=== PATIENT | female | born 1990 | race Caucasian/White ===

== ENCOUNTER 2019-11-26 05:39 | Inpatient (IN) | payer MEDICAID, OTHER ==
[2019-11-26 05:51] VITALS: PULSE 150
[2019-11-26] MEDS ORDERED: Sodium Chloride 0.9% 1,000 ML IV ONE ×2 (06:14→07:59)
[2019-11-26] MEDS ORDERED: Pantoprazole 40 MG Vial IVPUSH ONE (06:14)
[2019-11-26] MEDS ORDERED: Sodium Chloride 0.9% 1,000 ML ONE (06:16)
[2019-11-26] MEDS: Pantoprazole 80 MG in Sodium Chloride 0.9% 100 ML IV SCH ×2 (06:29→16:55)
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
--- NOTE | 2019-11-26 07:36 | CR ---
Abdomen: Upright view of the abdomen were obtained. Previous spine surgery is noted. Scattered gas within small bowel is seen. Small bowel gas is slightly prominent. No free air is seen. No soft tissue abnormality is seen. Impression: 1. Slightly prominent small bowel gas. Differential includes mild developing small bowel obstruction versus gastroenteritis. 2. No free air is seen. Diagnostic code #3 This report was dictated in [place] Standard Time
--- NOTE | 2019-11-26 07:48 | PCM.CONS ---
H&P History of Present Illness - General Date of Service: 11/26/19 Source of Information: Patient, Provider History Limitations: Reports: No Limitations - History of Present Illness Initial Comments - Free Text/Narative: 28 y lady awakened this am to vomiting blood. Reports nausea in last month. Periumbilical abdominal pain today. Pt had episode of syncope this am. Normally has BM once daily. No diarrhea or constipation. No melena. No prior occurrence of hematemesis. No history of ulcers. Per mother, pt has had increased NSAIDS lately, but pt denies. Epigastric Pain Score (Numeric/FACES): 10 - Related Data Allergies/Adverse Reactions: Allergies Allergy/AdvReac Type Severity Reaction Status Date / Time sumatriptan [From Imitrex] Allergy Severe Anaphylactic Verified 11/26/19 09:41 Shock sumatriptan succinate Allergy Severe Anaphylactic Verified 11/26/19 09:41 [From Imitrex] Shock Home Medications: Home Meds ALPRAZolam [Xanax] 0.5 mg PO BID PRN 11/26/19 [History] Cyclobenzaprine [Flexeril] 10 mg PO BID PRN 11/26/19 [History] DULoxetine HCl [Duloxetine HCl] 60 mg PO BID 11/26/19 [History] Gabapentin [Neurontin] 1,800 mg PO DAILY 11/26/19 [History] Hydrocodone/Acetaminophen [[place] 10-325 Tablet] 1 tab PO Q6H PRN 11/26/19 [ History] busPIRone [Buspar] 15 mg PO BID 11/26/19 [History] tiZANidine HCl [Zanaflex] 4 mg PO BID PRN 11/26/19 [History] Past Medical History - Past Health History Medical/Surgical History: Denies Medical/Surgical History 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: Musculoskeletal History: Reports: Back Pain, Chronic Psychiatric History: Reports: Anxiety Endocrine/Metabolic History: Reports: Obesity/BMI 30+ - Past Surgical History HEENT Surgical History: Reports: Oral Surgery Social & Family History - Family History Cardiac: Reports: CAD, Hypertension, [place] Neurological: Reports: CVA Endocrine/Metabolic: Reports: Diabetes, Type I - Tobacco Use Smoking Status *Q: Light Tobacco Smoker Years of Tobacco use: 2 Packs/Tins Daily: 1 Used Tobacco, but Quit: No - Caffeine Use Caffeine Use: Reports: None - Recreational Drug Use Recreational Drug Use: No - Living Situation & Occupation Living situation: Reports: , with Spouse, with Family Occupation: Employed H&P Review of Systems - Review of Systems: Review Of Systems: See Below General: Reports: Chills HEENT: Reports: No Symptoms Pulmonary: Reports: Cough Cardiovascular: Denies: Chest Pain Gastrointestinal: Reports: Abdominal Pain, Hematemesis, Nausea. Denies: Melena Genitourinary: Reports: No Symptoms Musculoskeletal: Reports: Leg Pain, Muscle Pain Psychiatric: Reports: No Symptoms Neurological: Reports: Syncope (this am) Exam - Exam Exam: See Below - Vital Signs Vital Signs: Last Vital Signs Temp 35.7 C 11/26/19 05:48 Pulse 150 H 11/26/19 05:48 Resp 18 11/26/19 05:48 BP 104/77 11/26/19 05:48 Pulse Ox 100 11/26/19 05:48 Weight: 92.533 kg - Exam Quality Assessment: No: Supplemental Oxygen General: Alert, Oriented HEENT: Conjunctiva Clear, EOMI Neck: Supple Lungs: Normal Respiratory Effort Cardiovascular: Regular Rhythm, Tachycardia GI/Abdominal Exam: Soft, No Distention, Tender (generalized abdominal tenderness without peritoneal signs). No: Guarding Extremities: Normal Inspection Peripheral Pulses: 2+: Dorsalis Pedis (L), Dorsalis Pedis (R) Skin: Warm, Dry, Intact Neurological: Cranial Nerves Intact Neuro Extensive - Mental Status: Normal Mood/Affect - Patient Data Lab Results Last 24 hrs: Laboratory Results - last 24 hr 11/26/19 11/26/19 11/26/19 Range/Units 06:13 06:13 06:13 WBC 16.33 H (3.98-10.04) K/mm3 RBC 4.72 (3.98-5.22) M/mm3 Hgb 13.2 (11.2-15.7) gm/dl Hct 40.7 (34.1-44.9) % MCV 86.2 (79.4-94.8) fl MCH 28.0 (25.6-32.2) pg MCHC 32.4 (32.2-35.5) g/dl RDW Std Deviation 39.6 (36.4-46.3) fL Plt Count 522 H (182-369) K/mm3 MPV 10.4 (9.4-12.3) fl Neutrophils % (Manual) 83 H (40-60) % Band Neutrophils % 0 (0-10) % Lymphocytes % (Manual) 14 L (20-40) % Atypical Lymphs % 0 % Monocytes % (Manual) 3 (2-10) % Eosinophils % (Manual) 0 L (0.7-5.8) % Basophils % (Manual) 0 L (0.1-1.2) Platelet Estimate Adequate RBC Morph Comment Normal PT 10.8 (9.7-12.0) SECONDS INR 0.99 APTT 27 (22-31) SECONDS Sodium 137 (136-145) mEq/L Potassium 4.3 (3.5-5.1) mEq/L Chloride 100 (98-107) mEq/L Carbon Dioxide 22 (21-32) mEq/L Anion Gap 19.3 H (5-15) BUN 38 H (7-18) mg/dL Creatinine 1.1 H (0.55-1.02) mg/dL Est Cr Clr Drug Dosing 72.72 mL/min Estimated GFR (MDRD) 58 (>60) mL/min BUN/Creatinine Ratio 34.5 H (14-18) Glucose 163 H (74-106) mg/dL Calcium 9.7 (8.5-10.1) mg/dL Magnesium 1.8 (1.8-2.4) mg/dl Total Bilirubin 0.7 (0.2-1.0) mg/dL AST 21 (15-37) U/L ALT 40 (14-59) U/L Alkaline Phosphatase 77 (46-116) U/L Total Protein 8.4 H (6.4-8.2) g/dl Albumin 3.8 (3.4-5.0) g/dl Globulin 4.6 gm/dL Albumin/Globulin Ratio 0.8 L (1-2) Lipase 65 L (73-393) U/L Blood Type Gel Antibody Screen Crossmatch 11/26/19 Range/Units 06:13 WBC (3.98-10.04) K/mm3 RBC (3.98-5.22) M/mm3 Hgb (11.2-15.7) gm/dl Hct (34.1-44.9) % MCV (79.4-94.8) fl MCH (25.6-32.2) pg MCHC (32.2-35.5) g/dl RDW Std Deviation (36.4-46.3) fL Plt Count (182-369) K/mm3 MPV (9.4-12.3) fl Neutrophils % (Manual) (40-60) % Band Neutrophils % (0-10) % Lymphocytes % (Manual) (20-40) % Atypical Lymphs % % Monocytes % (Manual) (2-10) % Eosinophils % (Manual) (0.7-5.8) % Basophils % (Manual) (0.1-1.2) Platelet Estimate RBC Morph Comment PT (9.7-12.0) SECONDS INR APTT (22-31) SECONDS Sodium (136-145) mEq/L Potassium (3.5-5.1) mEq/L Chloride (98-107) mEq/L Carbon Dioxide (21-32) mEq/L Anion Gap (5-15) BUN (7-18) mg/dL Creatinine (0.55-1.02) mg/dL Est Cr Clr Drug Dosing mL/min Estimated GFR (MDRD) (>60) mL/min BUN/Creatinine Ratio (14-18) Glucose (74-106) mg/dL Calcium (8.5-10.1) mg/dL Magnesium (1.8-2.4) mg/dl Total Bilirubin (0.2-1.0) mg/dL AST (15-37) U/L ALT (14-59) U/L Alkaline Phosphatase (46-116) U/L Total Protein (6.4-8.2) g/dl Albumin (3.4-5.0) g/dl Globulin gm/dL Albumin/Globulin Ratio (1-2) Lipase (73-393) U/L Blood Type O POSITIVE Gel Antibody Screen Negative Crossmatch See Detail Result Diagrams: 11/26/19 10:35 11/26/19 06:13 Sepsis Event Note - Evaluation Sepsis Screening Result: No Definite Risk - Focused Exam Vital Signs: Vital Signs Temp Pulse Resp BP Pulse Ox 11/26/19 05:48 35.7 C 150 H 18 104/77 100 Date Exam was Performed: 11/26/19 Time Exam was Performed: 13:07 Consult PN Assessment/Plan Procedures: Procedures ASPIRATE PLEURA W/O IMAGING (11/26/16) ASSAY OF CK (CPK) (11/26/16) ASSAY OF TROPONIN QUANT (11/26/16) BLOOD TRANSFUSION SERVICE (11/26/16) BLOOD TYPING SEROLOGIC ABO (11/26/16) BLOOD TYPING SEROLOGIC RH(D) (11/26/16) C-REACTIVE PROTEIN (11/26/16) CHEST X-RAY 1 VIEW FRONTAL (11/26/16) CHEST X-RAY 2VW FRONTAL&LATL (07/10/16) COMPATIBILITY TEST ANTIGLOB (11/26/16) COMPATIBILITY TEST SPIN (11/26/16) COMPLETE CBC W/AUTO DIFF WBC (11/26/16) CREATINE MB FRACTION (11/26/16) CRITICAL CARE ADDL 30 MIN (11/26/16) CRITICAL CARE FIRST HOUR (11/26/16) CT HEAD/BRAIN W/O DYE (04/14/14) DRUG TEST PRSMV DIR OPT OBS (11/26/16) EMERGENCY DEPT VISIT (11/26/16) EMERGENCY DEPT VISIT (08/07/16) EMERGENCY DEPT VISIT (12/18/15) EMERGENCY DEPT VISIT (12/10/15) HYDRATE IV INFUSION ADD-ON (11/26/16) INSERT EMERGENCY AIRWAY (11/26/16) INSERT TEMP BLADDER CATH (11/26/16) INSERTION OF CHEST TUBE (11/26/16) METABOLIC PANEL IONIZED CA (11/26/16) MRI NECK SPINE W/O DYE (12/29/15) PROTHROMBIN TIME (11/26/16) RBC ANTIBODY SCREEN (11/26/16) ROUTINE VENIPUNCTURE (11/26/16) THER/PROPH/DIAG INJ IV PUSH (11/26/16) THER/PROPH/DIAG INJ SC/IM (02/23/16) THER/PROPH/DIAG IV INF INIT (11/26/16) THROMBOPLASTIN TIME PARTIAL (11/26/16) TX/PRO/DX INJ NEW DRUG ADDON (11/26/16) TX/PRO/DX INJ SAME DRUG LEPIDOPTERIST (11/26/16) URINALYSIS AUTO W/SCOPE (11/26/16) VENT MGMT INPAT INIT DAY (11/26/16) X-RAY EXAM L-S SPINE 2/3 VWS (08/07/16) X-RAY EXAM NECK SPINE 6/>VWS (08/07/16) X-RAY EXAM THORAC SPINE 2VWS (08/07/16) (1) Upper GI bleed SNOMED Code(s): 15924552 Code(s): K92.2 - GASTROINTESTINAL HEMORRHAGE, UNSPECIFIED Current Visit: Yes Problem List Initiated/Reviewed/Updated: Yes Plan: 28 y/o lady with UGI bleed, question of NSAID induced gastropathy - IVF resuscitation with bolus as needed. May transfuse PRBC per primary - IV protonix - continue to monitor for hematemesis or melena - Hg check every 6 hours - NPO - pain management per primary Will follow Tammy Allred MD General Surgery
[2019-11-26] MEDS ORDERED: Ondansetron 4 MG/2 ML SDV IVPUSH ONE (07:59)
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
[2019-11-26] MEDS: Sodium Chloride 0.9% 1,000 ML IV SCH ×4 (10:58→22:16)
[2019-11-26] MEDS ORDERED: LORazepam 2 MG/ML SDV IVPUSH PRN (11:01)
[2019-11-26] MEDS ORDERED: Sodium Chloride 0.9% 500 ML IV ONE (11:15)
[2019-11-26] MEDS: Ondansetron 4 MG/2 ML SDV IV PRN ×2 (14:12→22:21)
[2019-11-26] MEDS: HYDROmorphone 0.5 MG/0.5 ML Syringe IVPUSH PRN ×2 (14:35→22:14)
[2019-11-27] MEDS: Sodium Chloride 0.9% 1,000 ML IV SCH (05:04)
[2019-11-27] MEDS: Pantoprazole 80 MG in Sodium Chloride 0.9% 100 ML IV SCH (05:04)
--- NOTE | 2019-11-27 09:10 | PCM.CONSN ---
- General Info Date of Service: 11/27/19 Subjective Update: Patient is doing well with only minimal pain in the left lower quadrant. Denies any nausea. Denies hematemesis or melena. Dizziness has resolved Functional Status: Reports: Pain Controlled, Ambulating, Urinating - Patient Data Vitals - Most Recent: Last Vital Signs Temp 36.6 C 11/27/19 07:43 Pulse 150 H 11/26/19 05:48 Resp 18 11/27/19 07:43 BP 128/91 H 11/27/19 07:43 Pulse Ox 99 11/27/19 07:43 Orthostatic Blood Pressure [ 88/67 Standing] Orthostatic Blood Pressure [ 106/83 Supine] Weight - Most Recent: 92.578 kg I&O - Last 24 Hours: Intake & Output 11/26/19 11/27/19 11/27/19 22:59 06:59 14:59 Intake Total 1203 1781 Output Total 400 Balance 803 1781 Lab Results Last 24 Hours: Laboratory Results - last 24 hr 11/26/19 11/26/19 11/26/19 Range/Units 10:35 10:35 16:25 Hgb 10.9 L D 9.8 L (11.2-15.7) gm/dl Hct 34.0 L 30.9 L (34.1-44.9) % HCG, Quant 1.0 mIU/mL 11/26/19 11/27/19 Range/Units 22:07 04:05 Hgb 8.8 L 8.1 L (11.2-15.7) gm/dl Hct 28.2 L 26.6 L (34.1-44.9) % HCG, Quant mIU/mL Med Orders - Current: Current Medications Hydromorphone HCl (Dilaudid) 0.5 mg IVPUSH Q2H PRN PRN Reason: Pain Last Admin: 11/26/19 22:14 Dose: 0.5 mg Pantoprazole Sodium 80 mg/ (Sodium Chloride) 100 mls @ 10 mls/hr IV Q10H [facility]LE[facility] Last Admin: 11/27/19 05:04 Dose: 8 mg/hr, 10 mls/hr Sodium Chloride (Normal Saline) 1,000 mls @ 150 mls/hr IV ASDIRECTED [facility] Last Admin: 11/27/19 05:04 Dose: 150 mls/hr Lorazepam (Ativan) 0.5 mg IVPUSH Q4H PRN PRN Reason: Anxiety Last Admin: 11/26/19 22:14 Dose: 0.5 mg Ondansetron HCl (Zofran) 4 mg IV Q4H PRN PRN Reason: Nausea/Vomiting Last Admin: 11/26/19 22:21 Dose: 4 mg Discontinued Medications Sodium Chloride (Normal Saline) 1,000 mls @ 999 mls/hr IV ONETIME ONE Stop: 11/26/19 07:14 Last Admin: 11/26/19 06:27 Dose: 999 mls/hr Sodium Chloride (Normal Saline) Confirm Administered Dose 1,000 mls @ as directed .ROUTE .STK-MED ONE Stop: 11/26/19 06:17 Last Admin: 11/26/19 06:35 Dose: Not Given Sodium Chloride (Normal Saline) 1,000 mls @ 999 mls/hr IV ONETIME ONE Stop: 11/26/19 08:59 Last Admin: 11/26/19 08:13 Dose: 999 mls/hr Sodium Chloride (Normal Saline) 1,000 mls @ 125 mls/hr IV ASDIRECTED [facility]LE[facility] Last Admin: 11/26/19 15:17 Dose: 125 mls/hr Sodium Chloride (Normal Saline) 500 mls @ 999 mls/hr IV .BOLUS ONE Stop: 11/26/19 11:45 Last Admin: 11/26/19 11:16 Dose: 999 mls/hr Ondansetron HCl (Zofran) 4 mg IVPUSH ONETIME ONE Stop: 11/26/19 08:00 Last Admin: 11/26/19 08:12 Dose: 4 mg Pantoprazole Sodium (Protonix Iv) 80 mg IVPUSH BOLUS ONE Stop: 11/26/19 06:15 Last Admin: 11/26/19 06:28 Dose: 80 mg - Exam Quality Assessment: No: Supplemental Oxygen General: Alert, Oriented HEENT: EOMI Lungs: Normal Respiratory Effort GI/Abdominal Exam: Soft, Tender (Mild tenderness in LLQ) Sepsis Event Note - Evaluation Sepsis Screening Result: No Definite Risk - Focused Exam Vital Signs: Vital Signs Temp Resp BP Pulse Ox 11/27/19 07:43 36.6 C 18 128/91 H 99 11/27/19 04:00 36.6 C 16 105/62 98 11/27/19 00:00 36.7 C 16 124/78 99 Date Exam was Performed: 11/27/19 Time Exam was Performed: 09:07 Consult PN Assessment/Plan Procedures: Procedures ASPIRATE PLEURA W/O IMAGING (11/26/16) ASSAY OF CK (CPK) (11/26/16) ASSAY OF TROPONIN QUANT (11/26/16) BLOOD TRANSFUSION SERVICE (11/26/16) BLOOD TYPING SEROLOGIC ABO (11/26/16) BLOOD TYPING SEROLOGIC RH(D) (11/26/16) C-REACTIVE PROTEIN (11/26/16) CHEST X-RAY 1 VIEW FRONTAL (11/26/16) CHEST X-RAY 2VW FRONTAL&LATL (07/10/16) COMPATIBILITY TEST ANTIGLOB (11/26/16) COMPATIBILITY TEST SPIN (11/26/16) COMPLETE CBC W/AUTO DIFF WBC (11/26/16) CREATINE MB FRACTION (11/26/16) CRITICAL CARE ADDL 30 MIN (11/26/16) CRITICAL CARE FIRST HOUR (11/26/16) CT HEAD/BRAIN W/O DYE (04/14/14) DRUG TEST PRSMV DIR OPT OBS (11/26/16) EMERGENCY DEPT VISIT (11/26/16) EMERGENCY DEPT VISIT (08/07/16) EMERGENCY DEPT VISIT (12/18/15) EMERGENCY DEPT VISIT (12/10/15) HYDRATE IV INFUSION ADD-ON (11/26/16) INSERT EMERGENCY AIRWAY (11/26/16) INSERT TEMP BLADDER CATH (11/26/16) INSERTION OF CHEST TUBE (11/26/16) METABOLIC PANEL IONIZED CA (11/26/16) MRI NECK SPINE W/O DYE (12/29/15) PROTHROMBIN TIME (11/26/16) RBC ANTIBODY SCREEN (11/26/16) ROUTINE VENIPUNCTURE (11/26/16) THER/PROPH/DIAG INJ IV PUSH (11/26/16) THER/PROPH/DIAG INJ SC/IM (02/23/16) THER/PROPH/DIAG IV INF INIT (11/26/16) THROMBOPLASTIN TIME PARTIAL (11/26/16) TX/PRO/DX INJ NEW DRUG ADDON (11/26/16) TX/PRO/DX INJ SAME DRUG POSTULANT (11/26/16) URINALYSIS AUTO W/SCOPE (11/26/16) VENT MGMT INPAT INIT DAY (11/26/16) X-RAY EXAM L-S SPINE 2/3 VWS (08/07/16) X-RAY EXAM NECK SPINE 6/>VWS (08/07/16) X-RAY EXAM THORAC SPINE 2VWS (08/07/16) (1) Upper GI bleed SNOMED Code(s): 95897419 Code(s): K92.2 - GASTROINTESTINAL HEMORRHAGE, UNSPECIFIED Current Visit: Yes Problem List Initiated/Reviewed/Updated: Yes Plan: 28 y/o lady with UGI bleed, question of NSAID induced gastropathy. Hemodynamics are improved and patient has no exam findings of active ongoing bleeding. Drop in hemoglobin is likely due to dilution and equilibration of hemoglobin. - IVF resuscitation with bolus as needed. May transfuse PRBC per primary - IV protonix - continue to monitor for hematemesis or melena - Hg check every 6 hours - NPO - pain management per primary Will follow. It does not appear by patient's clinical picture that she is in need of an urgent endoscopy. Tammy Allred MD General Surgery
[2019-11-27] MEDS: Ondansetron 4 MG/2 ML SDV IV PRN (10:43)
[2019-11-27] MEDS: HYDROmorphone 0.5 MG/0.5 ML Syringe IVPUSH PRN (10:43)
[2019-11-27] MEDS ORDERED: Nicotine 14 MG/24 Hr Patch TRDERM SCH (10:45)
[2019-11-27] MEDS ORDERED: Lactated Ringers 1,000 ML IV SCH (10:45)
[2019-11-27 12:46] VITALS: BP 132/97
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
--- NOTE | 2019-11-27 14:36 | PCM.DCSUM1 ---
Discharge Summary - Hospital Course HPI Initial Comments: 28-year-old female with a history of chronic back pain on long-term opioid analgesics presents to the emergency room after 6 episodes of bloody emesis. Patient states that around 1:00 this morning she vomited on the floor a large amount of blood, this occurred another several times and she had one significant bloody emesis in the emergency room at 4:00 this morning. Patient has been taking Aleve 2 to 4 tablets daily for the last 6 years. She does state that she has had some abdominal discomfort and epigastric discomfort over the last few weeks. She reportedly did have a syncopal episode this morning. She denies any melena, hematochezia, or diarrhea. She denies any previous episodes similar to this and no stomach ulcers. Diagnosis: Stroke: No - Discharge Data Discharge Date: 11/27/19 Discharge Disposition: Home, Self-Care 01 Condition: Good - Referral to Home Health Primary Care Physician: Romana Lares MAT TESTER - Discharge Diagnosis/Problem(s) (1) Upper GI bleed SNOMED Code(s): 21434496 ICD Code: K92.2 - GASTROINTESTINAL HEMORRHAGE, UNSPECIFIED Status: Acute Current Visit: Yes (2) Chronic tachycardia SNOMED Code(s): 6230496 ICD Code: R00.0 - TACHYCARDIA, UNSPECIFIED Status: Acute Current Visit: Yes (3) Chronic migraine SNOMED Code(s): 830175964 ICD Code: G43.709 - CHRONIC MIGRAINE W/O AURA, NOT INTRACTABLE, W/O STAT MIGR Status: Acute Current Visit: Yes (4) Anemia SNOMED Code(s): 964187777 ICD Code: D64.9 - ANEMIA, UNSPECIFIED Status: Acute Current Visit: Yes - Patient Summary/Data Labs Pending at D/C: Repeat Hb in 3-5 days Recommended Follow-up Testing/Procedures: EGD Hospital Course: Patient came in with complaint of upper GI bleed. She was admitted on IV pantoprazole and surgery was consulted who recommended monitoring Hb. Hemoglobin was between 8-9 during admission. She did not have any further episodes of hematemesis, she denies any hematochezia or melena. Did not have a BM during admission. We discussed importance of avoiding NSAIDs as much as possible and importance of quitting smoking. - Patient Instructions Diet: No Alcoholic Beverages - Discharge Plan *PRESCRIPTION DRUG MONITORING PROGRAM REVIEWED*: Not Applicable *COPY OF PRESCRIPTION DRUG MONITORING REPORT IN PATIENT IQRA: Not Applicable Prescriptions/Med Rec: Pantoprazole Sodium 40 mg PO BID #30 tablet. Home Medications: Home Meds ALPRAZolam [Xanax] 0.5 mg PO BID PRN 11/26/19 [History] Cyclobenzaprine [Flexeril] 10 mg PO BID PRN 11/26/19 [History] DULoxetine HCl [Duloxetine HCl] 60 mg PO BID 11/26/19 [History] EPINEPHrine [Epipen] 0.3 mg IM ASDIRECTED PRN 11/26/19 [History] Gabapentin [Neurontin] 600 mg PO TID 11/26/19 [History] Hydrocodone/Acetaminophen [[place] 10-325 Tablet] 1 tab PO Q6H PRN 11/26/19 [ History] busPIRone [Buspar] 15 mg PO BID 11/26/19 [History] cloNIDine HCL [Clonidine HCl] 0.2 mg PO BEDTIME 11/26/19 [History] tiZANidine HCl [Zanaflex] 4 mg PO BID 11/26/19 [History] Pantoprazole Sodium 40 mg PO BID #30 tablet. 11/27/19 [Rx] Patient Handouts: Gastrointestinal Bleeding, [id number], Steps to Quit Smoking Referrals: Romana Lares NP [Primary Care Provider] - - Discharge Summary/Plan Comment DC Time >30 min.: Yes - General Info Date of Service: 11/27/19 Subjective Update: Feeling ok Ambulating to and from restroom No BM yet Hungry, no abdominal pain or other complaints - Patient Data Vitals - Most Recent: Last Vital Signs Temp 97.8 F 11/27/19 12:00 Pulse 150 H 11/26/19 05:48 Resp 18 11/27/19 12:00 BP 132/97 H 11/27/19 12:00 Pulse Ox 100 11/27/19 12:00 Orthostatic Blood Pressure [ 88/67 Standing] Orthostatic Blood Pressure [ 106/83 Supine] Weight - Most Recent: 92.578 kg - Exam General: Reports: Alert, Oriented, Cooperative, No Acute Distress HEENT: Reports: Pupils Equal, Pupils Reactive, EOMI, Mucous Membr. Moist/[place] Neck: Reports: Supple, Trachea Midline, No JVD, No Thyromegaly, +2 Carotid Pulse wo Bruit Lungs: Reports: Clear to Auscultation, Normal Respiratory Effort. Denies: Rales , Rhonchi, Wheezing Cardiovascular: Reports: Regular Rate, Regular Rhythm. Denies: Murmurs, Gallops , Rubs GI/Abdominal Exam: Normal Bowel Sounds, Soft, Non-Tender. No: Distended, Guarding, Rigid Back Exam: Reports: Normal Inspection Extremities: Normal Inspection, Normal Range of Motion, Non-Tender, No Pedal Edema, Normal Capillary Refill Psy/Mental Status: Reports: Alert
[2019-11-27] MEDS ORDERED: Pantoprazole 40 MG Vial IV SCH (21:00)
== END 2019-11-27 15:44 | disposition home or self-care (01) | DRG 379 ==
LOC: JD.ED 05:39 → JD.ICU 08:40
PROVIDERS: ADMIT Family Medicine; ATTEND Family Medicine
DX: K92.2 Gastrointestinal hemorrhage, unspecified (principal); T40.2X5A Adverse effect of other opioids, initial encounter; N28.89 Other specified disorders of kidney and ureter; E66.9 Obesity, unspecified; F17.200 Nicotine dependence, unspecified, uncomplicated; F41.9 Anxiety disorder, unspecified; F32.9 Major depressive disorder, single episode, unspecified; D64.9 Anemia, unspecified; N18.9 Chronic kidney disease, unspecified; E86.1 Hypovolemia; G89.29 Other chronic pain; G43.709 Chronic migraine without aura, not intractable, without status migrainosus; R00.0 Tachycardia, unspecified; Z88.8 Allergy status to other drugs, medicaments and biological substances; Z79.899 Other long term (current) drug therapy; Z68.32 Body mass index [BMI] 32.0-32.9, adult
CPT/HCPCS: 36415; 74018; 80053; 83690; 83735; 85007; 85027; 85610; 85730; 86850; 86900; 86901; 86922; 93005; 96361; 96365; 96366; 96374; 96375; 99285; C9113 ×2; J2405; J7030 ×2; J7050; 84702; 85014; 85018; 93010; 99222; 99239; J1170; J2060; J7040; J7120

== ENCOUNTER 2020-06-18 13:36 | Emergency (ER) | payer MEDICAID ==
[2020-06-18 14:10] VITALS: BP 104/73; PULSE 75
[2020-06-18] MEDS ORDERED: Ketorolac 30 MG/ML SDV IVPUSH ONE (14:51)
[2020-06-18] MEDS ORDERED: Sodium Chloride 0.9% 10 ML Syringe FLUSH PRN (14:51)
[2020-06-18] MEDS ORDERED: HYDROmorphone 0.5 MG/0.5 ML Syringe IVPUSH ONE (14:51)
[2020-06-18] MEDS ORDERED: Ondansetron 4 MG/2 ML SDV IVPUSH ONE (14:51)
[2020-06-18] MEDS ORDERED: Sodium Chloride 0.9% 1,000 ML IV SCH (15:00)
--- NOTE | 2020-06-18 15:47 | EDM.PDOC ---
ED HPI GENERAL MEDICAL PROBLEM - General Chief Complaint: General Stated Complaint: BACK PAIN,LIGHT HEADED,DIZZY, Time Seen by Provider: 06/18/20 14:48 Source of Information: Reports: Patient History Limitations: Reports: No Limitations - History of Present Illness INITIAL COMMENTS - FREE TEXT/NARRATIVE: Patient is a 29-year-old female who presents to the emergency department with complaints of generalized body aches, cramping of her lower extremities, headache, and decreased appetite. She has a history of chronic back pain for which she takes Glady and Flexeril. States she took these medications this morning with little relief. She also has a history of hypokalemia and states the last time she had symptoms similar to this, she was found to have a very low potassium. She denies any fever, chills, nausea, or vomiting. Generalized Pain Score (Numeric/FACES): 10 - Related Data Allergies Allergy/AdvReac Type Severity Reaction Status Date / Time sumatriptan [From Imitrex] Allergy Severe Anaphylactic Verified 11/26/19 09:41 Shock sumatriptan succinate Allergy Severe Anaphylactic Verified 11/26/19 09:41 [From Imitrex] Shock Home Meds: Home Meds ALPRAZolam [Xanax] 0.5 mg PO BID PRN 11/26/19 [History] Cyclobenzaprine [Flexeril] 10 mg PO BID PRN 11/26/19 [History] DULoxetine HCl [Duloxetine HCl] 60 mg PO BID 11/26/19 [History] EPINEPHrine [Epipen] 0.3 mg IM ASDIRECTED PRN 11/26/19 [History] Gabapentin [Neurontin] 800 mg PO TID 11/26/19 [History] Hydrocodone/Acetaminophen [[place] 10-325 Tablet] 1 tab PO Q6H PRN 11/26/19 [History] busPIRone [Buspar] 15 mg PO BID 11/26/19 [History] cloNIDine HCL [Clonidine HCl] 0.2 mg PO BEDTIME 11/26/19 [History] tiZANidine HCl [Zanaflex] 4 mg PO BID 11/26/19 [History] Pantoprazole Sodium 40 mg PO BID #30 tablet. 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: Musculoskeletal History: Reports: Back Pain, Chronic Neurological History: Reports: Concussion, Head Trauma Psychiatric History: Reports: Anxiety Endocrine/Metabolic History: Reports: Obesity/BMI 30+ - Infectious Disease History Infectious Disease History: Reports: Chicken Pox - Past Surgical History HEENT Surgical History: Reports: Oral Surgery GI Surgical History: Reports: None Neurological Surgical History: Reports: Lumbar Spine Social & Family History - Family History Family Medical History: Noncontributory Cardiac: Reports: CAD, Hypertension, [place] Neurological: Reports: CVA Endocrine/Metabolic: Reports: Diabetes, Type I - Tobacco Use Smoking Status *Q: Never Smoker Second Hand Smoke Exposure: Yes - Caffeine Use Caffeine Use: Reports: Soda, Tea - Recreational Drug Use Recreational Drug Use: Yes Drug Use in Last 12 Months: No Recreational Drug Type: Reports: Marijuana/Hashish - Living Situation & Occupation Living situation: Reports: , with Spouse, with Family Occupation: Employed ED ROS GENERAL - Review of Systems Review Of Systems: See Below Constitutional: Reports: No Symptoms, Weakness. Denies: Fever, Chills HEENT: Reports: No Symptoms Respiratory: Reports: No Symptoms. Denies: Shortness of Breath, Cough Cardiovascular: Reports: No Symptoms. Denies: Chest Pain Endocrine: Reports: No Symptoms GI/Abdominal: Reports: Decreased Appetite. Denies: Abdominal Pain, Diarrhea, Nausea, Vomiting : Reports: No Symptoms. Denies: Dysuria, Flank Pain Musculoskeletal: Reports: Other (Generalized body aches and cramping) Skin: Reports: No Symptoms Neurological: Reports: Headache. Denies: Confusion, Dizziness Psychiatric: Reports: No Symptoms Hematologic/Lymphatic: Reports: No Symptoms Immunologic: Reports: No Symptoms ED EXAM, GENERAL - Physical Exam Exam: See Below Exam Limited By: No Limitations General Appearance: Alert, WD/WN, No Apparent Distress Respiratory/Chest: No Respiratory Distress, Lungs Clear, Normal Breath Sounds, No Accessory Muscle Use, Chest Non-Tender Cardiovascular: Normal Peripheral Pulses, Regular Rate, Rhythm, No Edema, No Gallop, No JVD, No Murmur, No Rub GI/Abdominal: Normal Bowel Sounds, Soft, Non-Tender, No Organomegaly, No Distention, No Abnormal Bruit, No Mass Neurological: Alert, Oriented, CN II-XII Intact, Normal Cognition, Normal Gait, Normal Reflexes, No Motor/Sensory Deficits Psychiatric: Normal Affect, Normal Mood Skin Exam: Warm, Dry, Intact, Normal Color, No Rash Course - Vital Signs Last Recorded V/S: Last Vital Signs Temp 96.9 F 06/18/20 14:06 Pulse 75 06/18/20 14:06 Resp 16 06/18/20 14:06 BP 104/73 06/18/20 14:06 Pulse Ox 99 06/18/20 14:06 - Orders/Labs/Meds Labs: Laboratory Tests 06/18/20 06/18/20 06/18/20 Range/Units 15:15 15:15 16:10 WBC 9.24 (3.98-10.04) K/mm3 RBC 4.65 (3.98-5.22) M/mm3 Hgb 10.7 L D (11.2-15.7) gm/dl Hct 35.4 (34.1-44.9) % MCV 76.1 L D (79.4-94.8) fl MCH 23.0 L (25.6-32.2) pg MCHC 30.2 L (32.2-35.5) g/dl RDW Std Deviation 43.2 (36.4-46.3) fL Plt Count 446 H D (182-369) K/mm3 MPV 10.2 (9.4-12.3) fl Neut % (Auto) 60.0 (34.0-71.1) % Lymph % (Auto) 26.4 (19.3-51.7) % [place] % (Auto) 9.5 (4.7-12.5) % Eos % (Auto) 3.7 (0.7-5.8) Baso % (Auto) 0.2 (0.1-1.2) % Neut # (Auto) 5.54 (1.56-6.13) K/mm3 Lymph # (Auto) 2.44 (1.18-3.74) K/mm3 [place] # (Auto) 0.88 H (0.24-0.36) K/mm3 Eos # (Auto) 0.34 (0.04-0.36) K/mm3 Baso # (Auto) 0.02 (0.01-0.08) K/mm3 Sodium 138 (136-145) mEq/L Potassium 4.2 (3.5-5.1) mEq/L Chloride 101 (98-107) mEq/L Carbon Dioxide 27 (21-32) mEq/L Anion Gap 14.2 (5-15) BUN 11 D (7-18) mg/dL Creatinine 0.9 (0.55-1.02) mg/dL Est Cr Clr Drug Dosing 88.07 mL/min Estimated GFR (MDRD) > 60 (>60) mL/min BUN/Creatinine Ratio 12.2 L (14-18) Glucose 97 (74-106) mg/dL Calcium 9.2 (8.5-10.1) mg/dL Total Bilirubin 0.2 (0.2-1.0) mg/dL AST 15 (15-37) U/L ALT 17 (14-59) U/L Alkaline Phosphatase 77 (46-116) U/L C-Reactive Protein 3.0 H* (<1.0) mg/dL Total Protein 8.2 (6.4-8.2) g/dl Albumin 3.6 (3.4-5.0) g/dl Globulin 4.6 gm/dL Albumin/Globulin Ratio 0.8 L (1-2) Urine Color Yellow (Yellow) Urine Appearance Clear (Clear) Urine pH 7.0 (5.0-8.0) Ur Specific [place] 1.015 (1.005-1.030) Urine Protein Negative (Negative) Urine Glucose (UA) Negative (Negative) Urine Ketones Negative (Negative) Urine Occult Blood Negative (Negative) Urine Nitrite Negative (Negative) Urine Bilirubin Negative (Negative) Urine Urobilinogen 0.2 (0.2-1.0) Ur Leukocyte Esterase 1+ H (Negative) Urine RBC 0-5 (0-5) /hpf Urine WBC 10-20 H (0-5) /hpf Ur Squamous Epith Cells 5-10 H (0-5) /hpf Urine Bacteria Few (FEW) /hpf Urine Mucus Not seen (FEW) /hpf COVID-19 PCR (NOT DETECT) 06/18/20 Range/Units 17:30 WBC (3.98-10.04) K/mm3 RBC (3.98-5.22) M/mm3 Hgb (11.2-15.7) gm/dl Hct (34.1-44.9) % MCV (79.4-94.8) fl MCH (25.6-32.2) pg MCHC (32.2-35.5) g/dl RDW Std Deviation (36.4-46.3) fL Plt Count (182-369) K/mm3 MPV (9.4-12.3) fl Neut % (Auto) (34.0-71.1) % Lymph % (Auto) (19.3-51.7) % [place] % (Auto) (4.7-12.5) % Eos % (Auto) (0.7-5.8) Baso % (Auto) (0.1-1.2) % Neut # (Auto) (1.56-6.13) K/mm3 Lymph # (Auto) (1.18-3.74) K/mm3 [place] # (Auto) (0.24-0.36) K/mm3 Eos # (Auto) (0.04-0.36) K/mm3 Baso # (Auto) (0.01-0.08) K/mm3 Sodium (136-145) mEq/L Potassium (3.5-5.1) mEq/L Chloride (98-107) mEq/L Carbon Dioxide (21-32) mEq/L Anion Gap (5-15) BUN (7-18) mg/dL Creatinine (0.55-1.02) mg/dL Est Cr Clr Drug Dosing mL/min Estimated GFR (MDRD) (>60) mL/min BUN/Creatinine Ratio (14-18) Glucose (74-106) mg/dL Calcium (8.5-10.1) mg/dL Total Bilirubin (0.2-1.0) mg/dL AST (15-37) U/L ALT (14-59) U/L Alkaline Phosphatase (46-116) U/L C-Reactive Protein (<1.0) mg/dL Total Protein (6.4-8.2) g/dl Albumin (3.4-5.0) g/dl Globulin gm/dL Albumin/Globulin Ratio (1-2) Urine Color (Yellow) Urine Appearance (Clear) Urine pH (5.0-8.0) Ur Specific [place] (1.005-1.030) Urine Protein (Negative) Urine Glucose (UA) (Negative) Urine Ketones (Negative) Urine Occult Blood (Negative) Urine Nitrite (Negative) Urine Bilirubin (Negative) Urine Urobilinogen (0.2-1.0) Ur Leukocyte Esterase (Negative) Urine RBC (0-5) /hpf Urine WBC (0-5) /hpf Ur Squamous Epith Cells (0-5) /hpf Urine Bacteria (FEW) /hpf Urine Mucus (FEW) /hpf COVID-19 PCR Not detected (NOT DETECT) Meds: Medications Discontinued Medications Generic Name Dose Route Start Last Admin Trade Name Freq PRN Reason Stop Dose Admin Hydromorphone HCl 0.5 mg 06/18/20 14:51 06/18/20 15:25 Dilaudid IVPUSH 06/18/20 14:52 0.5 mg ONETIME ONE Administration Sodium Chloride 1,000 mls @ 999 mls/hr 06/18/20 15:00 06/18/20 15:19 Normal Saline IV 150 mls/hr ASDIRECTED COLLEEN Administration Ketorolac Tromethamine 30 mg 06/18/20 14:51 06/18/20 15:22 Toradol IVPUSH 06/18/20 14:52 30 mg ONETIME ONE Administration Ondansetron HCl 4 mg 06/18/20 14:51 06/18/20 15:19 Zofran IVPUSH 06/18/20 14:52 4 mg ONETIME ONE Administration Sodium Chloride 10 ml 06/18/20 14:51 06/18/20 15:18 Saline Flush FLUSH 10 ml ASDIRECTED PRN Administration Keep Vein Open - Re-Assessments/Exams Free Text/Narrative Re-Assessment/Exam: 06/18/20 17:27 Hematology was significant for hemoglobin low at 10.7 and CRP minimally elevated at 3.0. Potassium is normal at 4.2. Urinalysis was significant for 1+ le ukocyte esterase, 10-20 WBCs, and 5-10 squamous epithelial cells. She has had no urinary symptoms. This is concerning for possible contamination, will culture her urine and treat as needed once the culture results are available. Discussed the results of the work-up with the patient. We will test her for coronavirus today given her symptoms of headache and body aches although she has not been febrile or had any respiratory complaints. Recommend that she contact her primary care provider tomorrow to schedule a follow-up. Return to the ER for worsening symptoms. Departure - Departure Time of Disposition: 17:27 Disposition: Home, Self-Care 01 Condition: Good Clinical Impression: Body aches Headache Qualifiers: Headache type: unspecified Headache chronicity pattern: acute headache Intractability: not intractable Qualified Code(s): R51 - Headache - Discharge Information *PRESCRIPTION DRUG MONITORING PROGRAM REVIEWED*: No *COPY OF PRESCRIPTION DRUG MONITORING REPORT IN PATIENT IQRA: No Instructions: General Headache Without Cause Referrals: Romana Lares NP [Primary Care Provider] - Forms: ED Department Discharge, ED Return to Work/School Form Additional Instructions: You were seen in the emergency department today for generalized body aches, cramping, fatigue, decreased appetite, and headaches. He work-up included blood work and urinalysis. Your hemoglobin was found to be slightly low on the blood work, however your potassium is well within the normal range. Urinalysis returned results suspicious for contamination, however we will cart culture the urine and contact you if antibiotic treatment is indicated. Recommend that you continue to use the medications provided to you by your primary care provider. Contact Romana Lares tomorrow to arrange for follow-up. You will be notified of your coronavirus results when they are available. Return to the ER as needed. Sepsis Event Note (ED) - Evaluation Sepsis Screening Result: No Definite Risk
== END 2020-06-18 17:55 | disposition home or self-care (01) ==
LOC: JD.ED 13:36
DX: R51 Headache (principal); F41.9 Anxiety disorder, unspecified; E66.9 Obesity, unspecified; Z68.28 Body mass index [BMI] 28.0-28.9, adult; Z88.8 Allergy status to other drugs, medicaments and biological substances; Z77.22 Contact with and (suspected) exposure to environmental tobacco smoke (acute) (chronic); Z20.828 Contact with and (suspected) exposure to other viral communicable diseases; Z79.899 Other long term (current) drug therapy
CPT/HCPCS: 36415; 80053; 81001; 85025; 86140; 87086; 87635; 96374; 96375; 99284; J1170; J1885; J2405; J7030; 99283; U0002

== ENCOUNTER 2020-07-24 18:31 | Emergency (ER) | payer MEDICAID ==
[2020-07-24 19:03] VITALS: BP 132/88; PULSE 99
== END 2020-07-24 19:30 | disposition left against medical advice (07) ==
LOC: JD.ED 18:31
DX: Z53.21 Procedure and treatment not carried out due to patient leaving prior to being seen by health care provider (principal)

== ENCOUNTER 2020-11-12 00:10 | Emergency (ER) | payer MEDICAID ==
[2020-11-12 00:24] VITALS: BP 140/96; PULSE 110
[2020-11-12] MEDS ORDERED: Bupivacaine 0.5% 10 ML SDV INJECT ONE (00:48)
[2020-11-12] MEDS ORDERED: Lidocaine 1% with EPINEPHrine 1:100,000 20 ML MDV INJECT ONE (00:48)
[2020-11-12] MEDS ORDERED: Penicillin V Potassium 500 MG Tab PO STA (00:48)
--- NOTE | 2020-11-12 00:52 | EDM.PDOC ---
ED HPI GENERAL MEDICAL PROBLEM - General Chief Complaint: ENT Problem Stated Complaint: JAW PAIN Time Seen by Provider: 11/12/20 00:20 Source of Information: Reports: Patient, Other (Boyfriend) History Limitations: Reports: No Limitations - History of Present Illness INITIAL COMMENTS - FREE TEXT/NARRATIVE: Ms. Arauz is a 29-year-old woman with a past medical history significant for chronic back pain, prescribed Medon 10/325, 1 tablet QID per her PCP since 2016, with her most recent prescription filled on 10/30/2020, who now presents the ED complaining of lower left wisdom tooth pain that she states began tonight. No dental injury. No recent fever. No recent oral drainage. The patient states that she had a lower right tooth filled on 11/02/2020, but nothing was done to tooth the lower left wisdom tooth. She denies prior problems with that tooth. The patient states that she took 600 mg of ibuprofen around 22:00. When asked if she took anything else, she acknowledged that she took 1 tablet of Medon 10/325 around 22:00, as well. In the ED, the patient is found to be mildly tachycardic at 110 bpm, otherwise, she is hemodynamically stable, afebrile, saturating 100% on room air. Other than her dental pain, the patient denies having a recent fever, chills, sore throat, ear pain, nasal or sinus congestion, cough, dyspnea, chest pain, palpitations, nausea, vomiting, constipation, diarrhea, abdominal pain, urinary symptoms, recent weight gain or weight loss, recent bloody bowel movements or black bowel movements, recent joint aches, headaches, or rashes. The patient's PCP is Romana Lares NP. She has not received an influenza vaccine this season, and declined an offer to receive one here in the ED. Right Jaw Pain Score (Numeric/FACES): 10 - Related Data Allergies Allergy/AdvReac Type Severity Reaction Status Date / Time bee venom protein (honey bee) Allergy Severe Anaphylactic Verified 11/12/20 00:24 Shock sumatriptan [From Imitrex] Allergy Severe Anaphylactic Verified 11/12/20 00:24 Shock sumatriptan succinate Allergy Severe Anaphylactic Verified 11/12/20 00:24 [From Imitrex] Shock Home Meds: Home Meds ALPRAZolam [Xanax] 0.5 mg PO BID PRN 11/26/19 [History] Cyclobenzaprine [Flexeril] 10 mg PO BID PRN 11/26/19 [History] EPINEPHrine [Epipen] 0.3 mg IM ASDIRECTED PRN 11/26/19 [History] Gabapentin [Neurontin] 800 mg PO TID 11/26/19 [History] Hydrocodone/Acetaminophen [Medon 10-325 Tablet] 1 tab PO Q6H PRN 11/26/19 [History] cloNIDine HCL [Clonidine HCl] 0.2 mg PO BEDTIME 11/26/19 [History] tiZANidine HCl [Zanaflex] 4 mg PO BID 11/26/19 [History] Penicillin V Potassium 1 tab PO Q6HR #40 tab 11/12/20 [Rx] Past Medical History HEENT History: Reports: Impaired Vision Respiratory History: Reports: Pneumothorax (bilateral traumatic, 11/26/2016) Musculoskeletal History: Reports: Back Pain, Chronic, Fracture (L-spine) Neurological History: Reports: Concussion, Head Trauma Psychiatric History: Reports: Anxiety Endocrine/Metabolic History: Reports: Obesity/BMI 30+ - Infectious Disease History Infectious Disease History: Reports: Chicken Pox - Past Surgical History HEENT Surgical History: Reports: Oral Surgery (dental extractions) Neurological Surgical History: Reports: Lumbar Spine (fusion) Social & Family History - Tobacco Use Tobacco Use Status *Q: Former Tobacco User Tobacco Use Within Last Twelve Months: Vaping (Nicotine + CBD) Years of Tobacco use: 12 Packs/Tins Daily: 0.5 Month/Year Tobacco Last Used: Quit February 2020 - Caffeine Use Caffeine Use: Reports: Coffee - Alcohol Use Alcohol Use History: Yes Alcohol Use Frequency: Socially - Recreational Drug Use Recreational Drug Use: No - Living Situation & Occupation Living situation: Reports: , with Family Occupation: Unemployed ED ROS ENT - Review of Systems Review Of Systems: Comprehensive ROS is negative, except as noted in HPI. ED EXAM, ENT - Physical Exam Exam: See Below Exam Limited By: No Limitations General Appearance: Alert, WD/WN, No Apparent Distress Eye Exam: Bilateral Eye: EOMI, Normal Inspection Ears: Normal External Exam, Normal Canal, Hearing Grossly Normal, Normal TMs Nose: Normal Inspection, Normal Mucousa, No Blood Mouth/Throat: Normal Lips, Normal Oropharynx, Other (Teeth #1, 2 absent. Tooth #3 with amalgam filling and anterior caries. Tooth #4 absent. Tooth #5 with amalgam filling. Tooth #10 carious. Tooth #12 carious. Tooth #15, 16 absent. Tooth #17 (the tooth of concern) with caries on the occlusal surface, but no gingival swelling or pointing. Teeth #18, 19 absent. Tooth #20 with severe decay. Tooth #21, 22 absent. Tooth #29 with severe decay. Tooth #30 absent. Tooth #31 with decay. Tooth #32 with amalgam filling.) Head: Atraumatic, Normocephalic Neck: Normal Inspection, Supple, Non-Tender, Full Range of Motion. No: Lymphadenopathy (L), Lymphadenopathy (R) ED ENT PROCEDURES - Additional/Other Procedure(s) Other (Free Text) Procedure(s): Left inferior alveolar nerve block I prepared a 50-50 admixture of bupivacaine 0.5% without epinephrine and lidocaine 1% with epinephrine. After positioning the patient, I stood on her right side and palpated her retromolar fossa with my thumb. I retracted her left cheek with my left hand, visualizing her pterygomandibular triangle. I positioned the syringe fitted with a 27 gauge needle over the patient's right lower premolars, parallel to the occlusal surfaces of the patient's teeth and inserted the needle about 1 cm above tooth #16, advancing until bone was felt. I then injected about 2 cc of anesthetic, plus a small additional amount as I withdrew the needle. The patient tolerated the procedure well. Course - Vital Signs Last Recorded V/S: Last Vital Signs Temp 36.5 C 11/12/20 00:18 Pulse 110 H 11/12/20 00:18 Resp 18 11/12/20 00:18 BP 140/96 H 11/12/20 00:18 Pulse Ox 100 11/12/20 00:18 - Orders/Labs/Meds Meds: Medications Discontinued Medications Generic Name Dose Route Start Last Admin Trade Name Gabo PRN Reason Stop Dose Admin Bupivacaine HCl 10 ml 11/12/20 00:48 11/12/20 00:58 Sensorcaine-Mpf 0.5% INJECT 11/12/20 00:49 10 ml ONETIME ONE Administration Lidocaine/Epinephrine 20 ml 11/12/20 00:48 11/12/20 00:58 Xylocaine 1% With Epinephrine 1:100,000 INJECT 11/12/20 00:49 20 ml ONETIME ONE Administration Penicillin V Potassium 500 mg 11/12/20 00:48 11/12/20 00:58 Veetids PO 11/12/20 00:49 500 mg ONETIME STA Administration - Re-Assessments/Exams Free Text/Narrative Re-Assessment/Exam: 11/12/20 00:49 As above, the patient states that she developed a lower left wisdom tooth pain some time tonight, however, on examination, while she has a lower left third molar (wisdom tooth, Tooth #17), teeth #18 and 19 are absent, therefore there is no impaction or pressure on tooth #17, and while I see that she has caries on the occlusal surface, I see no gingival swelling to suggest a dental abscess. Additionally, she has widespread dental decay, but is not complaining of pain to those teeth. Her presentation is concerning for drug-seeking behavior, which is buttressed by prior documented drug-seeking behavior and the fact that she is prescribed 120 tablets of Medon 10/325 every month, with her most recent prescription being filled just 8 days ago, yet she did not mention this to the triage nurse. For today's purposes, I offered to perform an inferior alveolar nerve block, which the patient accepted. I will also start her on oral penicillin. 11/12/20 01:01 I performed a left inferior alveolar nerve block. Please see the procedure note. The patient tolerated the procedure well. I will discharge the patient home with a 10-day prescription for penicillin 500 mg po Q6 hrs along with instructions for her to take [id number] ibuprofen 600 mg up to every 8 hours with food, along with her previously prescribed Medon. She is to follow-up with a dentist within the next 10 days. Departure - Departure Time of Disposition: 01:07 Disposition: Home, Self-Care 01 Condition: Good Clinical Impression: Dentalgia - Discharge Information *PRESCRIPTION DRUG MONITORING PROGRAM REVIEWED*: Not Applicable *COPY OF PRESCRIPTION DRUG MONITORING REPORT IN PATIENT IQRA: Not Applicable Prescriptions: Penicillin V Potassium 1 tab PO Q6HR #40 tab Referrals: Romana Lares NP [Primary Care Provider] - Forms: ED Department Discharge Additional Instructions: You were seen in the emergency room for lower left dental pain. While you have dental cavities, no obvious dental infection was found, however, you have been started on the antibiotic penicillin just in case. A lower left dental block was performed in the ER. A prescription for penicillin has been sent to the [facility] pharmacy, located just south and across the [address] from [facility]. Take 1 tablet of penicillin every 6 hours, as prescribed. Finish the entire prescription unless told otherwise by dentist. We recommend that you take [id number] ibuprofen, 3 tablets (600 mg) up to every 8 hours, with food, as needed for discomfort. You may also take your previously prescribed Medon as needed for pain not relieved by ibuprofen. As discussed, it is very important that you follow-up with a dentist within the next 10 days. If any other problems, please do not hesitate to return to the ER. Sepsis Event Note (ED) - Evaluation Sepsis Screening Result: No Definite Risk - Focused Exam Vital Signs: Vital Signs Temp Pulse Resp BP Pulse Ox 11/12/20 00:18 36.5 C 110 H 18 140/96 H 100
== END 2020-11-12 01:19 | disposition home or self-care (01) ==
LOC: JD.ED 00:10
DX: K02.9 Dental caries, unspecified (principal); E66.9 Obesity, unspecified; Z68.32 Body mass index [BMI] 32.0-32.9, adult; Z91.030 Bee allergy status; Z88.8 Allergy status to other drugs, medicaments and biological substances; Z79.899 Other long term (current) drug therapy; Z87.891 Personal history of nicotine dependence
CPT/HCPCS: 64400; 99282; A9270; J3490; 99283

== ENCOUNTER 2020-11-24 18:49 | Emergency (ER) | payer MEDICAID ==
[2020-11-24 19:04] VITALS: BP 153/95; PULSE 111
[2020-11-24] MEDS ORDERED: Ketorolac 30 MG/ML SDV IVPUSH ONE (19:19)
[2020-11-24] MEDS ORDERED: Sodium Chloride 0.9% 1,000 ML IV STA (19:19)
[2020-11-24] MEDS ORDERED: HYDROmorphone 0.5 MG/0.5 ML Syringe IVPUSH ONE (19:19)
--- NOTE | 2020-11-24 19:59 | CT ---
Head CT Technique: Multiple axial sections through the brain were obtained. Intravenous contrast was not utilized. Comparison: Prior head CT study of 04/14/14. Findings: Ventricles along with basal cisterns and sulci over the convexities are within normal limits for the patient's age. No abnormal parenchymal densities are seen. No evidence of intracranial hemorrhage. No midline shift or mass-effect is appreciated. Visualized mastoid sinuses are clear. Visualized paranasal sinuses are also clear. No acute calvarial finding is appreciated. Impression: 1. Nothing acute is appreciated on noncontrast head CT study. Diagnostic code #1
--- NOTE | 2020-11-24 20:22 | EDM.PDOC ---
ED HPI GENERAL MEDICAL PROBLEM - General Chief Complaint: ENT Problem Stated Complaint: TOOTH PAIN Time Seen by Provider: 11/24/20 18:56 Source of Information: Reports: Patient, RN Notes Reviewed History Limitations: Reports: No Limitations - History of Present Illness INITIAL COMMENTS - FREE TEXT/NARRATIVE: Patient is a 29-year-old female presenting to the emergency department via [facility] with complaints of left sided tooth pain as well as a 6 syncopal event at home. She was seen in this emergency department 11 days ago with complaints of left jaw pain. She at that time was found to have dental caries on the left side and placed on oral antibiotics. She has finished these. She has since developed pain to teeth on her right lower and right upper. She has seen her dentist for this and they sealed a fractured tooth in the right lower which she states is still significantly painful. She states she is scheduled to have teeth pulled on December 09, but is also scheduled have fillings done tomorrow. Patient takes 1 [place] twice daily routinely for back pain with her last dose being around 11:00 this morning. She trujillo\d also taken ibuprofen approximately 3 hours prior to coming to the ER without relief. At home this evening, she was experiencing significant dental pain. States her last thing she remembers is her teeth hurting and then her daughter fighting with her father. She then woke up on the floor next to her bed with EMS in the room. He denies any chest pain or headache. He denies any illicit drug use. States that she does occasionally drink alcohol socially but that has been 4 months since she has had anything to drink. She denies any fever, chills, nausea, or vomiting. Right Jaw Pain Score (Numeric/FACES): 10 - Related Data Allergies Allergy/AdvReac Type Severity Reaction Status Date / Time bee venom protein (honey bee) Allergy Severe Anaphylactic Verified 11/24/20 18:56 Shock sumatriptan [From Imitrex] Allergy Severe Anaphylactic Verified 11/24/20 18:56 Shock sumatriptan succinate Allergy Severe Anaphylactic Verified 11/24/20 18:56 [From Imitrex] Shock Home Meds: Home Meds ALPRAZolam [Xanax] 0.5 mg PO BID PRN 11/26/19 [History] Cyclobenzaprine [Flexeril] 10 mg PO BID PRN 11/26/19 [History] EPINEPHrine [Epipen] 0.3 mg IM ASDIRECTED PRN 11/26/19 [History] Gabapentin [Neurontin] 800 mg PO TID 11/26/19 [History] Hydrocodone/Acetaminophen [[place] 10-325 Tablet] 1 tab PO Q6H PRN 11/26/19 [History] cloNIDine HCL [Clonidine HCl] 0.2 mg PO BEDTIME 11/26/19 [History] tiZANidine HCl [Zanaflex] 4 mg PO BID 11/26/19 [History] Penicillin V Potassium 1 tab PO Q6HR #40 tab 11/12/20 [Rx] Past Medical History - Past Health History Medical/Surgical History: Denies Medical/Surgical History HEENT History: Reports: Impaired Vision Cardiovascular History: Reports: None Respiratory History: Reports: Pneumothorax Gastrointestinal History: Reports: GI Bleed Genitourinary History: Reports: None 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: Musculoskeletal History: Reports: Back Pain, Chronic, Fracture Neurological History: Reports: Concussion, Head Trauma Psychiatric History: Reports: Anxiety Endocrine/Metabolic History: Reports: Obesity/BMI 30+ Hematologic History: Reports: None Immunologic History: Reports: None Oncologic (Cancer) History: Reports: None Dermatologic History: Reports: None - Infectious Disease History Infectious Disease History: Reports: Chicken Pox - Past Surgical History Head Surgeries/Procedures: Reports: None HEENT Surgical History: Reports: Oral Surgery Other HEENT Surgeries/Procedures: [place] teeth extraction GI Surgical History: Reports: None Endocrine Surgical History: Reports: None Neurological Surgical History: Reports: Lumbar Spine Musculoskeletal Surgical History: Reports: Other (See Below) Other Musculoskeletal Surgeries/Procedures:: Back surgery - fusion Social & Family History - Family History Family Medical History: No Pertinent Family History Cardiac: Reports: CAD, Hypertension, [place] Neurological: Reports: CVA Endocrine/Metabolic: Reports: Diabetes, Type I - Tobacco Use Tobacco Use Status *Q: Never Tobacco User - Caffeine Use Caffeine Use: Reports: Soda - Recreational Drug Use Recreational Drug Use: No - Living Situation & Occupation Living situation: Reports: , with Family Occupation: Unemployed ED ROS ENT - Review of Systems Review Of Systems: See Below Constitutional: Reports: No Symptoms. Denies: Fever, Chills HEENT: Reports: Dental Pain. Denies: Vision Change Respiratory: Reports: No Symptoms Cardiovascular: Reports: No Symptoms Endocrine: Reports: No Symptoms GI/Abdominal: Reports: No Symptoms : Reports: No Symptoms Musculoskeletal: Reports: No Symptoms Skin: Reports: No Symptoms Neurological: Reports: Syncope. Denies: Confusion, Dizziness, Headache Psychiatric: Reports: No Symptoms Hematologic/Lymphatic: Reports: No Symptoms Immunologic: Reports: No Symptoms ED EXAM, ENT - Physical Exam Exam: See Below General Appearance: Alert, Anxious, Mild Distress Mouth/Throat: Normal Inspection, Dental Pain (Pain, fractures, and obvious dental caries to tooth 3, 30, and 31) Respiratory/Chest: No Respiratory Distress, Lungs Clear, Normal Breath Sounds, No Accessory Muscle Use, Chest Non-Tender Cardiovascular: Normal Peripheral Pulses, Regular Rate, Rhythm, No Edema, No Gallop, No JVD, No Murmur, No Rub Neurological: Alert, Oriented, CN II-XII Intact, Normal Cognition, Normal Gait, Normal Reflexes, No Motor/Sensory Deficits Psychiatric: Normal Affect, Normal Mood Skin: Warm, Dry, Intact, Normal Color, No Rash #1 Interpretation EKG Date: 11/24/20 Time: 19:46 Rhythm: NSR Rate (Beats/Min): 103 [place]: Normal P-Wave: Present QRS: Normal ST-T: Normal QT: Normal Course - Vital Signs Last Recorded V/S: Last Vital Signs Temp 97.2 F 11/24/20 19:01 Pulse 111 H 11/24/20 19:01 Resp 18 11/24/20 19:01 BP 153/95 H 11/24/20 19:01 Pulse Ox 100 11/24/20 19:01 - Orders/Labs/Meds Labs: Laboratory Tests 11/24/20 11/24/20 11/24/20 Range/Units 20:02 20:02 20:02 WBC 7.30 (3.98-10.04) K/mm3 RBC 5.14 (3.98-5.22) M/mm3 Hgb 13.1 D (11.2-15.7) gm/dl Hct 42.5 (34.1-44.9) % MCV 82.7 D (79.4-94.8) fl MCH 25.5 L (25.6-32.2) pg MCHC 30.8 L (32.2-35.5) g/dl RDW Std Deviation 50.2 H (36.4-46.3) fL Plt Count 432 H (182-369) K/mm3 MPV 10.4 (9.4-12.3) fl Neut % (Auto) 56.6 (34.0-71.1) % Lymph % (Auto) 33.8 (19.3-51.7) % [place] % (Auto) 7.4 (4.7-12.5) % Eos % (Auto) 1.8 (0.7-5.8) Baso % (Auto) 0.3 (0.1-1.2) % Neut # (Auto) 4.13 (1.56-6.13) K/mm3 Lymph # (Auto) 2.47 (1.18-3.74) K/mm3 Fergus # (Auto) 0.54 H (0.24-0.36) K/mm3 Eos # (Auto) 0.13 (0.04-0.36) K/mm3 Baso # (Auto) 0.02 (0.01-0.08) K/mm3 D-Dimer, Quantitative 0.44 (0.19-0.50) mg/L Sodium 144 (136-145) mEq/L Potassium 3.6 (3.5-5.1) mEq/L Chloride 105 (98-107) mEq/L Carbon Dioxide 29 (21-32) mEq/L Anion Gap 13.6 (5-15) BUN 9 (7-18) mg/dL Creatinine 0.9 (0.55-1.02) mg/dL Est Cr Clr Drug Dosing 88.07 mL/min Estimated GFR (MDRD) > 60 (>60) mL/min BUN/Creatinine Ratio 10.0 L (14-18) Glucose 107 H (74-106) mg/dL Calcium 9.5 (8.5-10.1) mg/dL Magnesium 2.2 (1.8-2.4) mg/dl Total Bilirubin 0.4 (0.2-1.0) mg/dL AST 10 L (15-37) U/L ALT 13 L (14-59) U/L Alkaline Phosphatase 75 (46-116) U/L Troponin I (0.00-0.056) ng/mL Total Protein 8.3 H (6.4-8.2) g/dl Albumin 4.3 (3.4-5.0) g/dl Globulin 4.0 gm/dL Albumin/Globulin Ratio 1.1 (1-2) 11/24/20 Range/Units 20:02 WBC (3.98-10.04) K/mm3 RBC (3.98-5.22) M/mm3 Hgb (11.2-15.7) gm/dl Hct (34.1-44.9) % MCV (79.4-94.8) fl MCH (25.6-32.2) pg MCHC (32.2-35.5) g/dl RDW Std Deviation (36.4-46.3) fL Plt Count (182-369) K/mm3 MPV (9.4-12.3) fl Neut % (Auto) (34.0-71.1) % Lymph % (Auto) (19.3-51.7) % Fergus % (Auto) (4.7-12.5) % Eos % (Auto) (0.7-5.8) Baso % (Auto) (0.1-1.2) % Neut # (Auto) (1.56-6.13) K/mm3 Lymph # (Auto) (1.18-3.74) K/mm3 Fergus # (Auto) (0.24-0.36) K/mm3 Eos # (Auto) (0.04-0.36) K/mm3 Baso # (Auto) (0.01-0.08) K/mm3 D-Dimer, Quantitative (0.19-0.50) mg/L Sodium (136-145) mEq/L Potassium (3.5-5.1) mEq/L Chloride (98-107) mEq/L Carbon Dioxide (21-32) mEq/L Anion Gap (5-15) BUN (7-18) mg/dL Creatinine (0.55-1.02) mg/dL Est Cr Clr Drug Dosing mL/min Estimated GFR (MDRD) (>60) mL/min BUN/Creatinine Ratio (14-18) Glucose (74-106) mg/dL Calcium (8.5-10.1) mg/dL Magnesium (1.8-2.4) mg/dl Total Bilirubin (0.2-1.0) mg/dL AST (15-37) U/L ALT (14-59) U/L Alkaline Phosphatase (46-116) U/L Troponin I < 0.017 (0.00-0.056) ng/mL Total Protein (6.4-8.2) g/dl Albumin (3.4-5.0) g/dl Globulin gm/dL Albumin/Globulin Ratio (1-2) Meds: Medications Discontinued Medications Generic Name Dose Route Start Last Admin Trade Name Gbao PRN Reason Stop Dose Admin Hydromorphone HCl 0.5 mg 11/24/20 19:19 11/24/20 19:59 Dilaudid IVPUSH 11/24/20 19:20 0.5 mg ONETIME ONE Administration Sodium Chloride 1,000 mls @ 999 mls/hr 11/24/20 19:19 11/24/20 19:59 Normal Saline IV 11/24/20 20:19 999 mls/hr NOW STA Administration Ketorolac Tromethamine 30 mg 11/24/20 19:19 11/24/20 19:59 Toradol IVPUSH 11/24/20 19:20 30 mg ONETIME ONE Administration Oxycodone/Acetaminophen 1 tab 11/24/20 21:01 11/24/20 21:27 Percocet 325-5 Mg PO 11/24/20 21:02 1 tab ONETIME ONE Administration - Re-Assessments/Exams Free Text/Narrative Re-Assessment/Exam: Patient is a 29-year-old female presenting to the emergency department with complaints of right-sided upper and lower tooth pain specifically to 3, 30, 31 as well as a syncopal episode at home. States last thing she remembers is her teeth hurting and her daughter fighting with her father and then she woke up next to her bed with the EMS in the room. She has been using [place] 1 tab twice daily routinely for the last 3 years for back pain. She denies any illicit drug use. On exam, she is fully alert and does not seem to be obtunded or under the influence of any illicit drugs or alcohol. She does appear to be in a significant amount of pain. On exam, she has dental caries and fractures to the previously discussed teeth. She denies any headache chest pain. I ordered blood work, EKG, head CT, a 1 L bolus of normal saline, Toradol 30 mg IV, Dilaudid 0.5 mg IV. 11/24/20 21:00 Hematology was grossly unremarkable. D-dimer was normal, troponin normal. Head CT shows no acute abnormalities. EKG no acute abnormalities. She did get some relief from the discomfort with the medications given. Vital signs have been normal throughout her stay in the ER. She continues to be alert and oriented. My suspicion is that her syncopal episode was related to the severe pain that she was in. Nonetheless, I have ordered a 48-hour Holter monitor. I will give her 1 Percocet prior to discharge. Advised that she should not take her [place] that she has at home in addition to this. She may take a dose of [place] tomorrow morning prior to heading to [place] for her dental appointment. Discussed return precautions as well as follow-up with her primary care provider. Discharge instructions as documented. Departure - Departure Time of Disposition: 21:02 Disposition: Home, Self-Care 01 Condition: Good Clinical Impression: Dentalgia Syncope Qualifiers: Syncope type: unspecified Qualified Code(s): R55 - Syncope and collapse - Discharge Information *PRESCRIPTION DRUG MONITORING PROGRAM REVIEWED*: No *COPY OF PRESCRIPTION DRUG MONITORING REPORT IN PATIENT IQRA: No Instructions: Acute Pain, Adult, Syncope, [id number] Referrals: Romana Lares NP [Primary Care Provider] - Forms: ED Department Discharge Additional Instructions: You were seen in the emergency department today for dental pain as well as having a syncopal episode at home. Work-up included blood work, EKG, and a CT scan of your head. Results of your work-up were found to be normal. While in the ER, you received IV fluids as well as pain medications. This did improve your pain. You were given 1 Percocet prior to discharge. Recommend that you do not take any of your [place] at home after taking this medication this evening. You may however use Tylenol or ibuprofen as needed. You may resume taking [place] tomorrow morning prior to your appointment with your dentist. Discuss ongoing management of your dental pain with your dentist tomorrow. You have at home with a 48-hour Holter monitor. Follow the instructions as given to you. Schedule a follow-up appointment with your primary care provider early next week. Return to ER for any new or worsening symptoms of concern. Sepsis Event Note (ED) - Evaluation Sepsis Screening Result: No Definite Risk - Focused Exam Vital Signs: Vital Signs Temp Pulse Resp BP Pulse Ox 11/24/20 19:01 97.2 F 111 H 18 153/95 H 100
[2020-11-24] MEDS ORDERED: Acetaminophen/oxyCODONE 325-5 MG Tab PO ONE (21:01)
== END 2020-11-24 21:30 | disposition home or self-care (01) ==
LOC: JD.ED 18:49
DX: K03.81 Cracked tooth (principal); K02.9 Dental caries, unspecified; R55 Syncope and collapse; E66.9 Obesity, unspecified; Z68.30 Body mass index [BMI] 30.0-30.9, adult; Z91.030 Bee allergy status; Z88.8 Allergy status to other drugs, medicaments and biological substances; Z79.899 Other long term (current) drug therapy
CPT/HCPCS: 36415; 70450; 80053; 83735; 84484; 85025; 85379; 93005; 93225; 93226; 96374; 96375; 99284; A9270; J1170; J1885; J7030; 93010

== ENCOUNTER 2021-08-10 00:44 | Emergency (ER) | payer MEDICAID ==
[2021-08-10 00:57] VITALS: BP 139/102; PULSE 128
== END 2021-08-10 02:05 | disposition left against medical advice (07) ==
LOC: JD.ED 00:44
DX: Z53.21 Procedure and treatment not carried out due to patient leaving prior to being seen by health care provider (principal); Z20.822 Contact with and (suspected) exposure to COVID-19
CPT/HCPCS: U0002

== ENCOUNTER 2023-06-25 11:00 | Emergency (ER) | payer MEDICAID ==
[2023-06-25 13:04] VITALS: BP 125/89; PULSE 99
== END 2023-06-25 13:05 | disposition home or self-care (01) ==
LOC: JD.ED 11:00
DX: M25.512 Pain in left shoulder (principal); E66.9 Obesity, unspecified; Z68.31 Body mass index [BMI] 31.0-31.9, adult; Z91.030 Bee allergy status; Z88.8 Allergy status to other drugs, medicaments and biological substances; W01.0XXA Fall on same level from slipping, tripping and stumbling without subsequent striking against object, initial encounter; Y92.009 Unspecified place in unspecified non-institutional (private) residence as the place of occurrence of the external cause
CPT/HCPCS: 73030-26-LT; 73030-LT; 99283